=== PATIENT | female | born 1995 | race Two or more races ===

== ENCOUNTER 2017-01-17 15:14 | Emergency (ER) | payer OTHER ==
[2017-01-17 16:06] VITALS: BP 114/74; PULSE 84; TEMP 98.4; BMI 56.4
--- NOTE | 2017-01-17 16:38 | PDOC ---
History of Present Illness - General History Source: Patient Exam Limitations: No Limitations <Ronal Lyn - Last Filed: 01/17/17 16:38> - History of Present Illness Initial Comments: 01/17/17 16:42 Patient is a 21 year old female with no significant medical hx who is presenting to the ED with pain to her second toe of her right foot since yesterday. Patient reports she was at the gym yesterday removing a 25 lb plate off of a lifting rack when she dropped it on her second toe of her right foot. Today the patient developed worsening pain, swelling and bruising to the toe. She also states that she has difficulty bearing weight to the toe without pain. Denies any other trauma. <Cassia Vasquez - Last Filed: 01/17/17 16:47> - General Chief Complaint: Injury Stated Complaint: POSSIBLE FRACTURE RIGHT SECOND TOE Time Seen by Provider: 01/17/17 15:34 Past History - Past Medical History Suicide Attempt (Hx): No Other medical history: DENIES - Immunization History Immunization Up to Date: Yes - Psycho/Social/Smoking Cessation Hx Anxiety: No Suicidal Ideation: No Smoking History: Never smoked Have you smoked in the past 12 months: No Number of Cigarettes Smoked Daily: 0 Cigars Per Day: 0 Hx Alcohol Use: No Drug/Substance Use Hx: No Substance Use Type: None <Ronal Lyn - Last Filed: 01/17/17 16:38> <Cassia Vasquez - Last Filed: 01/17/17 16:47> - Past Medical History Allergies/Adverse Reactions: Allergies Allergy/AdvReac Type Severity Reaction Status Date / Time No Known Drug Allergies Allergy Verified 01/17/17 15:19 pineapple [Pineapple] Allergy Verified 01/17/17 15:16 Home Medications: Ambulatory Orders Cholecalciferol (Vitamin D3) [Vitamin D3 -] 1,000 unit PO BID 01/17/17 Isotretinoin [Myorisan] 40 mg PO DAILY 01/17/17 Review of Systems - Review of Systems Comments:: 01/17/17 16:44 GENERAL/CONSTITUTIONAL: No fever or chills. No weakness. HEAD, EYES, EARS, NOSE AND THROAT: No change in vision. No ear pain or discharge. No sore throat. MUSCULOSKELETAL: Second right toe pain, bruising, and swelling. No neck or back pain. SKIN: No rash NEUROLOGIC: No headache, vertigo, loss of consciousness, or change in strength/ sensation. <Cassia Vasquez - Last Filed: 01/17/17 16:47> *Physical Exam - Vital Signs Last Vital Signs Temp Pulse Resp BP Pulse Ox 98.4 F 84 16 114/74 98 01/17/17 15:15 01/17/17 15:15 01/17/17 15:15 01/17/17 15:15 01/17/17 15:15 <Ronal Lyn - Last Filed: 01/17/17 16:38> - Vital Signs Last Vital Signs Temp Pulse Resp BP Pulse Ox 98.4 F 84 16 114/74 98 01/17/17 15:15 01/17/17 15:15 01/17/17 15:15 01/17/17 15:15 01/17/17 15:15 - Physical Exam Comments: 01/17/17 16:44 GENERAL: Awake, alert, and fully oriented, in no acute distress HEAD: No signs of trauma EYES: PERRLA, EOMI, sclera anicteric, conjunctiva clear ENT: Auricles normal inspection, hearing grossly normal, nares patent, oropharynx clear without exudates. Moist mucosa EXTREMITIES: Tender to palpation right foot second digit over the proximal phalanx with some eecchymosis appreciated. Patient able to wiggle toes. Mild swelling. 2 + DP pulse. Sensation intact throughout. NEUROLOGICAL: Cranial nerves II through XII grossly intact. Normal speech, normal gait SKIN: Warm, Dry, normal turgor, no rashes or lesions noted. <Cassia Vasquez - Last Filed: 01/17/17 16:47> ED Treatment Course - RADIOLOGY Radiology Studies Ordered: Category Date Time Status TOE(S) RIGHT [RAD] Stat Radiology 01/17/17 15:29 Completed <Ronal Lyn - Last Filed: 01/17/17 16:38> - RADIOLOGY Radiograph Interpretation: 01/17/17 16:47 Right Second Toe X-Ray Impression: No gross bone or soft tissue abnormality seen. Reported By: Kate Stubbs MD <Cassia Vasquez - Last Filed: 01/17/17 16:47> Medical Decision Making - Medical Decision Making 01/17/17 16:34 A portion of this note was documented by scribe services under my direction. I have reviewed the details of the note, within reason, and agree with the documentation with the following case summary and management plan written by me. Patient treated in the ED. Nursing notes are reviewed and incorporated into the medical decision-making. Vital signs reviewed. Peripheral IV access obtained by the nurse, laboratory studies are drawn and sent, reviewed and interpreted by myself. Vital Signs Temp Pulse Resp BP Pulse Ox 98.4 F 84 16 114/74 98 01/17/17 15:15 01/17/17 15:15 01/17/17 15:15 01/17/17 15:15 01/17/17 15:15 21-year-old female with no past medical history presents with right second digit toe pain since yesterday. Pt accidentally dropped a 25 lb weight on her right 2nd toe. Denies numbness, weakness. Xray performed. NO fracture. However, pt placed in megan tape and given hard sole shoe. Rest, ice, compression, elevation. NSAIDS. Follow up with orthopedics if symptoms persistent. I discussed the physical exam findings, ancillary test results and final diagnoses with the patient. I answered all of the patient's questions. The patient was satisfied with the care received and felt comfortable with the discharge plan and treatment plan. The patient will call their primary care physician within 24 hours to arrange follow-up and will return to the Emergency Department with any new, persistant or worsening symptoms. <Ronal Lyn - Last Filed: 01/17/17 16:38> *DC/Admit/Observation/Transfer - Discharge Dispostion Admit: No <Ronal Lyn - Last Filed: 01/17/17 16:38> - Attestations Scribe Attestion: 01/17/17 16:46 Documentation prepared by Cassia Vasquez, acting as medical orderly for Ronal Lyn MD. <Cassia Vasquez - Last Filed: 01/17/17 16:47> Diagnosis at time of Disposition: Toe pain Qualifiers: Laterality: right Qualified Code(s): M79.674 - Pain in right toe(s) - Discharge Dispostion Disposition: HOME Condition at time of disposition: Stable - Referrals Referrals: Michael De Anda MD [Staff Physician] - - Patient Instructions Printed Discharge Instructions: DI for Toe Sprain Additional Instructions: Your xray is negative for fracture. Take 400 mg ibuprofen every 6 hours as needed for pain. Elevate the leg. Megan tape please. Hard sole shoe as needed. If your symptoms are persistent for over 1 week, please call orthopedics and schedule an appointment.
== END 2017-01-17 16:43 | disposition home or self-care (01) ==
LOC: FER 15:14
PROC: 2W3SXYZ Immobilization of Right Foot using Other Device (ICD-10-PCS; principal; 2017-01-17)
DX: M79.674 Pain in right toe(s) (principal); W20.8XXA Other cause of strike by thrown, projected or falling object, initial encounter; Y93.89 Activity, other specified; Y92.39 Other specified sports and athletic area as the place of occurrence of the external cause; Y99.9 Unspecified external cause status
CPT/HCPCS: 29550; 73660-TC; 99281-25

== ENCOUNTER 2018-04-21 17:15 | Emergency (ER) | payer OTHER ==
[2018-04-21 17:24] VITALS: BP 139/91; PULSE 91; TEMP 98.6; BMI 26.5
[2018-04-21] MEDS ORDERED: IBUPROFEN 400 MG TABLET (FP) PO ONE ×2 (17:32→18:01)
--- NOTE | 2018-04-21 17:38 | PDOC ---
History of Present Illness - General Chief Complaint: Injury Stated Complaint: RIGHT ANKLE PAIN Time Seen by Provider: 04/21/18 17:31 History Source: Patient Exam Limitations: No Limitations - History of Present Illness Initial Comments: 04/21/18 17:31 This is a 22 YOF with h/o prior non-surgical fracture to the base of the right great toe, who p/w 10/10 foot pain and inability to weight bear for the past hour, in the setting of injuring that foot today. She explains that she was walking outside when she stepped into a small grassy ditch and rolled her ankle , causing immediate pain but not initially preventing her from weight bearing. She was able to walk on the foot all day, and did not take any pain medications or ice the area. She did not otherwise injure herself when she twisted her ankle , and denies falling or hitting her head or losing consciousness. She otherwise has been feeling well lately and denies any f/c/n/v/d/c, n/t/w, skin lesions or cuts, etc. She adamantly denies any chance she may be and would be willing to sign a waiver. Past History - Past Medical History Allergies/Adverse Reactions: Allergies Allergy/AdvReac Type Severity Reaction Status Date / Time No Known Drug Allergies Allergy Verified 04/21/18 17:16 Home Medications: Ambulatory Orders NK [No Known Home Medication] 04/21/18 COPD: No - Immunization History Immunization Up to Date: Yes - Suicide/Smoking/Psychosocial Hx Smoking History: Never smoked Have you smoked in the past 12 months: No Number of Cigarettes Smoked Daily: 0 Cigars Per Day: 0 Information on smoking cessation initiated: No Hx Alcohol Use: No Drug/Substance Use Hx: No Substance Use Type: None Review of Systems - Review of Systems Able to Perform ROS?: Yes Constitutional: No: Chills, Fever, Unexplained wgt Loss HEENTM: No: Nose Congestion, Throat Pain Respiratory: No: Cough, Shortness of Breath Cardiac (ROS): No: Chest Pain, Palpitations ABD/GI: No: Constipated, Diarrhea, Nausea, Vomiting : No: Burning, Dysuria Musculoskeletal: Yes: Other (right foot pain and swelling). No: Back Pain, Neck Pain Integumentary: No: Bruising, Rash Neurological: No: Headache, Numbness, Tingling, Weakness, Dizziness Endocrine: No: Unexplained Weight Gain, Unexplained Weight Loss *Physical Exam - Vital Signs Last Vital Signs Temp Pulse Resp BP Pulse Ox 98.6 F 91 H 20 139/91 100 04/21/18 17:16 04/21/18 17:16 04/21/18 17:16 04/21/18 17:16 04/21/18 17:16 04/21/18 17:38 GENERAL: nontoxic and well-appearing, pleasant young adult female, nourished, A/ Ox4, no acute distress while at rest but does wince with foot repositioning and exam and does become uncomfortable and tearful, speaking in full sentences, answers questions appropriately, patient is wheelchaired into the department as she cannot stand or weight bear HEENT: PERRLA, EOMI, moist mucous membranes, no posterior pharyngeal erythema, no tonsillar swelling or exudates, no cervical lymphadenopathy NECK: No midline ttp, no spinal stepoff or deformity, full ROM, supple CARDIOVASCULAR: Regular rate and rhythm, normal S1S2, MGR, radial and DP pulses 2+ and symmetric, capillary refill <2 seconds, extremities warm and well- perfused LUNGS/RESPIRATORY: No respiratory distress, normal and symmetric chest movements during respirations, lungs CTA bilaterally, equal breath sounds, no cyanosis, no nail clubbing GI/ABDOMEN: Normal symmetric appearance, normoactive bowel sounds, soft, no tenderness to palpation, no midline pulsatile masses, no palpated organomegaly BACK: No midline ttp or stepoff or deformity of thoracic or lumbar spine EXTREMITIES: distal pulses 2+, warm and well-perfused, no LE edema, no right knee tenderness/stepoff/deformity/bruising, full knee ROM FOOT AND ANKLE: right side with mild swelling circumferentially to arch of foot , no significant ecchymosis, no cuts or lesions or abrasions, but marked tenderness to midfoot and diffusely to medial and lateral arch of foot including base of 5th metatarsal, no ttp overlying medial or lateral malleolus, no tenderness to compression of distal tibia-fibula, Achilles tendon grossly intact to palpation, no ankle instability to anterior or posterior stress SKIN: Warm and dry, no pallor, no jaundice, no bruising, no rash, no skin breakdown, no cuts, no lesions NEUROLOGICAL: GCS 15, CN II-XII grossly intact, ambulating with normal gait, moving all extremities, 5/5 strength proximally and distally, no facial droop, no decreased sensation, able to wiggle all right toes, NV intact distally with normal sensation Medical Decision Making - Medical Decision Making 04/21/18 17:48 Pt p/w ankle pain/swelling worsening since an injury to the area. Initial Vital Signs Temp Pulse Resp BP Pulse Ox 98.6 F 91 H 20 139/91 100 04/21/18 17:16 04/21/18 17:16 04/21/18 17:16 04/21/18 17:16 04/21/18 17:16 Exam: ankle with significant swelling, pain in malleolar zone, tenderness edge of lateral and medial malleolus, inability to walk 4 steps for exam. DDX IBNLT: ankle sprain/strain, tendon or ligament rupture/tear, fracture ( particular c/f Lisfranc or Michael fxr), dislocation, contusion, blood vessel injury, nerve injury, etc. W/U ordered: ankle/foot XR, hCG TX ordered: Motrin 800 mg to start Ankle/Foot XR: STS but no obvious fracture or dislocation, otherwise nothing acute. 04/21/18 18:52 Re-assessment: Patient states pain much improved, repeat exam with continued tenderness but improved from initial. Patient remains too painful to bear weight. For safety and patient comfort, a short-leg posterior splint is applied. Subsequently patient is able to wiggle toes, intact sensation, cap refill <2 seconds. The patient is given crutches and instructed to be NWB until orthopedics clinic f/u early this coming week. Pt is instructed to keep the splint clean and dry, and not to get it wet or take it off. They are also instructed to use OTC analgesics. Workup is not concerning for emergency-level pathology at this time. The Pt is appropriate for discharge with close outpatient follow up. They are comfortable with this plan and will follow up with their primary care provider in 1-3 days. Orthopedist referral information is given and the patient will call [facility] for an appointment. Specific return precautions are discussed and they will come back to the ER if necessary. *DC/Admit/Observation/Transfer Diagnosis at time of Disposition: Right foot injury Qualifiers: Encounter type: initial encounter Qualified Code(s): S99.921A - Unspecified injury of right foot, initial encounter - Discharge Dispostion Disposition: HOME Condition at time of disposition: Stable Decision to Admit order: No - Referrals Referrals: Dequan Steward MD [Staff Physician] - - Patient Instructions Additional Instructions: YOU WERE SEEN IN THE ER FOR A FOOT INJURY. WE DID AN EXAM AND X-RAYS, WHICH SHOWED NO OBVIOUS FRACTURE OR DISLOCATION ON OUR PRELIMINARY READ. HOWEVER, THE RADIOLOGIST STILL NEEDS TO READ THE XRAY, AND THEY WILL SEE IT TOMORROW. THEY WILL CALL YOU IF THERE ARE ANY ABNORMAL FINDINGS ON THE FINAL READING. WE PLACED YOUR FOOT AND ANKLE IN A SPLINT WHICH YOU SHOULD WEAR UNTIL YOU SEE AN ORTHOPEDIST. WE ARE GIVING YOU CRUTCHES, SO PLEASE USE THESE AND TO NOT PUT ANY WEIGHT ON THE FOOT UNTIL YOU ARE CLEARED BY THE ORTHOPEDIST. AFTER OUR ASSESSMENT, WE DO NOT BELIEVE YOU ARE HAVING A MEDICAL EMERGENCY AT THIS TIME, AND WE BELIEVE YOU ARE SAFE TO GO HOME. TAKE TYLENOL OR MOTRIN FOR THE PAIN ( YOU CAN FOLLOW THE REGIMEN BELOW TO USE THEM TOGETHER). WE ARE GIVING YOU REFERRAL INFORMATION FOR OUR ORTHOPEDIST, AND YOU SHOULD CALL THEM WHEN THEY OPEN ON Monday AND MAKE AN APPOINTMENT FOR SOON POSSIBLE. TELL THEM YOU WERE SEEN IN THE ER, AND TELL THEM YOU NEED AN APPOINTMENT EARLY THIS WEEK. IF YOU HAVE ANY NEW OR WORSENING SYMPTOMS, ESPECIALLY WORSENING OR SEVERE PAIN OF THE ANKLE/FOOT/TOES, OR NUMBNESS, TINGLING, WEAKNESS, REDNESS, OR PALENESS OF THE AREA, PLEASE COME BACK TO THE ER AT ANY TIME (24 HOURS A DAY). IF YOU ARE HAVING SEVERE OR LIFE THREATENING SYMPTOMS, OR SYMPTOMS THAT MAKE IT UNSAFE TO DRIVE OR HAVE SOMEONE DRIVE YOU, PLEASE CALL 911. At hour 0, take Tylenol 650 mg (two regular strength pills) At hour 3, take ibuprofen 600 mg (three regular strength pills) At hour 6, take Tylenol 650 mg (two regular strength pills) At hour 9, take ibuprofen 600 mg (three regular strength pills) Etc. - Post Discharge Activity Forms/Work/School Notes: Back to Work
--- NOTE | 2018-04-21 17:39 | PDOC ---
Attending Attestation - Resident Resident Name: Rico,Mary - ED Attending Attestation I have performed the following: I have examined & evaluated the patient, The case was reviewed & discussed with the resident, I agree w/resident's findings & plan, Exceptions are as noted - HPI HPI: 04/21/18 17:36 22-year-old female medical history here today status post right foot injury. Patient states happened earlier today around 10 AM she was stepping off of a piece of concrete onto the grass subsequently rolled her right foot is now complaining of pain and swelling at the right foot. Pain is worse with weightbearing as well as plantar dorsiflexion of the right foot denies any knee or hip injury no LOC did not hit head during her fall no previous surgeries or prior injuries on her ankle or foot did not take anything for pain prior to arrival - Physicial Exam PE: 04/21/18 17:37 Awake alert no acute distress head is atraumatic extremity exam reveals right lower extremity foot with tenderness to palpation over the dorsal first and second metatarsal there is no appreciated ecchymosis or swelling she does have some inferior medial malleoli tenderness no lateral malleolar tenderness patient has 2+ DP and PT pulses ankle has decreased flexion and extension due to pain the knee is without proximal fibular tenderness on exam full range of motion hip is nontender full range of motion skin is warm and dry No appreciated ecchymosis neurologically intact - Medical Decision Making 04/21/18 17:38 Differential diagnosis includes first or second metatarsal fracture ankle sprain low-speed Lisfranc injury plan x-ray of the foot and ankle no proximal fibular tenderness noted we will provide pain control with anti-inflammatories and reassess 04/21/18 18:34 xray unremarkable.due to pain on exam... placed posterior mold splint fu with ortho given.
== END 2018-04-21 19:09 | disposition home or self-care (01) ==
LOC: FER 17:15
DX: S99.921A Unspecified injury of right foot, initial encounter (principal); X58.XXXA Exposure to other specified factors, initial encounter; Y93.89 Activity, other specified; Y92.9 Unspecified place or not applicable
CPT/HCPCS: 73610-TC-RT-FY; 73630-TC-RT-FY; 84703; 99283-25